=== PATIENT | female | born 2000 | race Caucasian/White ===

== ENCOUNTER 2019-04-29 12:14 | Emergency (ER) | payer MEDICAID ==
[~2019-04-29] VITALS: Ht 165.1 cm; Wt 56.7 kg
[2019-04-29 12:24] VITALS: BP_SYST 129
--- NOTE | 2019-04-29 13:45 | NUR ---
PT CAME TO ER FOR CONSTIPATION LASTING MULTIPLE WEEKS. PT HAS NO S/S OF DISTRESS AT THIS TIME, RESTING IN [facility], AWAITING
--- NOTE | 2019-04-29 13:45 | NUR ---
Patient to ER bed 8 to gown for evaluation. Side rails up.
--- NOTE | 2019-04-29 14:00 | NUR ---
ER at bedside examining patient.
[2019-04-29 15:35] VITALS: BP_SYST 131
--- NOTE | 2019-04-29 15:35 | NUR ---
Patient given written and verbal discharge instructions and verbalizes understanding. ER MD discussed with patient the results and treatment provided. Patient in stable condition. ID arm band removed. Rx of MAG CITRATE AND MIRALAX given. Patient educated on pain management and to follow up with PMD. Pain Scale 0. Opportunity for questions provided and answered. Medication side effect fact sheet provided.
== END 2019-04-29 15:35 | disposition home or self-care (01) ==
LOC: SED 12:14
DX: K59.00 Constipation, unspecified (principal)
CPT/HCPCS: 74018; 81025; 99283

== ENCOUNTER 2019-07-25 15:29 | Emergency (ER) | payer MEDICAID ==
[~2019-07-25] VITALS: Ht 165.1 cm; Wt 54.4 kg
[2019-07-25] MEDS ORDERED: MAGN296S30 PO (15:39)
[2019-07-25] MEDS ORDERED: POLY238P32 PO (15:39)
[2019-07-25 15:40] VITALS: BP_SYST 135
[2019-07-25] MEDS ORDERED: LACT1CAP79 PO (15:40)
[2019-07-25 17:05] LABS: BASOPHILS # (AUTO) 0.1 K/uL (0.0-0.2); BASOPHILS % (AUTO) 0.8 % (0.0-2.0); EOSINOPHILS # (AUTO) 0.3 K/uL (0.0-0.4); EOSINOPHILS % (AUTO) 2.9 % (0.0-4.0); HEMATOCRIT 42.8 % (36-48); HEMOGLOBIN 14.4 g/dL (12.0-16.0); LYMPHOCYTES # (AUTO) 2.8 K/uL (1.0-5.5); MEAN CORPUSCULAR HEMOGLOBIN 30 pg (27-31); MEAN CORPUSCULAR HGB CONC 34 % (32-36); MEAN CORPUSCULAR VOLUME 89 fL (79.0-98.0); MONOCYTES # (AUTO) 1.1 K/uL (0.0-1.0); MONOCYTES % (AUTO) 9.1 % (1.7-9.3); NEUTROPHILS # (AUTO) 7.5 K/uL (1.8-7.7); NEUTROPHILS % (AUTO) 63.2 % (40.0-70.0); PLATELET COUNT (AUTO) 269 K/uL (130-430); RED BLOOD CELL COUNT(AUTO) 4.79 MIL/uL (4.2-6.2); RED CELL DISTRIBUTION WIDTH 13.3 % (9.0-15.0); WHITE BLOOD COUNT (AUTO) 11.8 K/uL (4.5-11.0)
[2019-07-25 17:12] LABS: CALCIUM 9.2 mg/dL (8.4-11.0); CREATININE 0.79 mg/dL (0.55-1.30)
[2019-07-25 17:38] LABS: TOTAL BILIRUBIN 0.4 mg/dL (0.0-1.0)
[2019-07-25 18:15] VITALS: BP_SYST 121
== END 2019-07-25 18:15 | disposition home or self-care (01) ==
LOC: SED 15:29
DX: O26.891 Other specified pregnancy related conditions, first trimester (principal); R10.2 Pelvic and perineal pain; Z3A.01 Less than 8 weeks gestation of pregnancy
CPT/HCPCS: 36415; 76805-TC; 80053; 81002; 81025; 84702-TC; 85025; 99284

== ENCOUNTER 2019-09-19 11:59 | Emergency (ER) | payer MEDICAID ==
[~2019-09-19] VITALS: Ht 165.1 cm; Wt 52.2 kg
[~2019-09-19 11:59] MED LIST: LACT1CAP79 PO; MAGN296S30 PO; POLY238P32 PO
[2019-09-19 12:09] VITALS: BP_SYST 115
[2019-09-19] MEDS ORDERED: ONDANSETRON 4 MG ODT TAB PO ONE (12:15)
[2019-09-19] MEDS ORDERED: NACL 0.9% 1,000 ML IV ONE (12:29)
[2019-09-19] MEDS ORDERED: ONDANSETRON HCL 4 MG/2 ML VIAL IVP ONE (12:30)
[2019-09-19 13:39] VITALS: BP_SYST 115
== END 2019-09-19 13:41 | disposition home or self-care (01) ==
LOC: SED 11:59
DX: O21.8 Other vomiting complicating pregnancy (principal); O23.41 Unspecified infection of urinary tract in pregnancy, first trimester; Z86.73 Personal history of transient ischemic attack (TIA), and cerebral infarction without residual deficits; Z3A.13 13 weeks gestation of pregnancy
CPT/HCPCS: 81002; 81025; 87086; 96361; 96374; 99283; J2405; J7030; Q0162

== ENCOUNTER 2020-08-15 22:09 | Emergency (ER) | payer MEDICAID ==
[~2020-08-15] VITALS: Ht 165.1 cm; Wt 56.7 kg
[2020-08-15 22:19] VITALS: BP_SYST 126
--- NOTE | 2020-08-15 22:22 | NUR ---
Patient triaged and placed in waiting room. VSS and patient appears in no acute distress at this time. Accompanied by self, awaiting available bed, and MD notified of need for MSE.
--- NOTE | 2020-08-15 22:55 | NUR ---
Patient ambulatory to bed 6 for evaluation
--- NOTE | 2020-08-15 23:00 | NUR ---
patient complains of genitalia itchiness that started a week ago and a fish smell that started 3 days ago. patient bought monistat to help with the itchness. Patient does not take any medications except control.
[2020-08-15 23:04] LABS: BILIRUBIN,URINE NEGATIVE (NEGATIVE); BLOOD, URINE NEGATIVE (NEGATIVE); CLARITY/URINE CLEAR (CLEAR); COLOR,URINE YELLOW (YELLOW); GLUCOSE,URINE NEGATIVE (NEGATIVE); KETONES,URINE NEGATIVE (NEGATIVE); LEUKOCYTE ESTERASE ,URINE NEGATIVE (NEGATIVE); NITRITE, URINE NEGATIVE (NEGATIVE); PH,URINE 6.5 (5.0-8.0); PROTEIN URINE NEGATIVE (NEGATIVE); UROBILINOGEN,URINE 0.2 (0.2-1.0)
--- NOTE | 2020-08-15 23:17 | NUR ---
DR. MICHAEL AT BEDSIDE FOR PATIENT EVALUATION.
[2020-08-15] MEDS ORDERED: METR70GE15 VG (23:53)
--- NOTE | 2020-08-16 00:57 | NUR ---
MD in to do vaginal swab on patient.
[2020-08-16 01:14] VITALS: BP_SYST 126
--- NOTE | 2020-08-16 01:14 | NUR ---
Patient given written and verbal discharge instructions and verbalizes understanding. ER MD discussed with patient the results and treatment provided. Patient in stable condition. ID arm band removed. IV catheter removed intact and dressing applied, no active bleeding. Rx of metronidazole given. Patient educated on pain management and to follow up with PMD. Pain Scale 0/10 Opportunity for questions provided and answered. Medication side effect fact sheet provided.
[2020-08-16] MEDS ORDERED: CLINDAMYCIN 2% VAGINAL CREAM VG SCH (21:00)
== END 2020-08-16 01:14 | disposition home or self-care (01) ==
LOC: SED 22:09
DX: N76.0 Acute vaginitis (principal); L25.3 Unspecified contact dermatitis due to other chemical products; Z79.899 Other long term (current) drug therapy
CPT/HCPCS: 81003; 81025; 87070-TC; 87075-TC; 99283